=== PATIENT | female | born 2000 | race Caucasian/White ===

== ENCOUNTER 2020-05-25 08:33 | Day surgery (SDC) | payer OTHER ==
[2020-05-16 16:16] VITALS: BMI 21.1
[2020-05-25] MEDS ORDERED: PROPOFOL 20 ML ONE ×3 (09:10)
[2020-05-25 10:41] VITALS: TEMP 98.1
[2020-05-25] MEDS ORDERED: IBUPROFEN 600 MG TABLET (FP) PO ONE (10:48)
[2020-05-25] MEDS ORDERED: DICYCLOMINE HCL 20 MG/2 ML AMPUL IM ONE (10:55)
[2020-05-25 11:06] VITALS: BP 114/66; PULSE 76
[2020-05-25] MEDS ORDERED: DICYCLOMINE HCL 10 MG CAPSULE PO ONE (11:45)
== END 2020-05-25 11:10 | disposition home or self-care (01) ==
LOC: FASU-ENDO 08:33
PROVIDERS: ATTEND Internal Medicine Gastroenterology
PROC: 0DJD8ZZ Inspection of Lower Intestinal Tract, Via Natural or Artificial Opening Endoscopic (ICD-10-PCS; principal; 2020-05-25 09:46)
DX: R10.9 Unspecified abdominal pain (principal); K64.8 Other hemorrhoids; K63.89 Other specified diseases of intestine; K56.609 Unspecified intestinal obstruction, unspecified as to partial versus complete obstruction
CPT/HCPCS: 84703

== ENCOUNTER 2022-12-23 10:08 | Day surgery (SDC) | payer OTHER ==
[2022-12-22 11:59] VITALS: BMI 21.9
[2022-12-23] MEDS ORDERED: PROPOFOL 20 ML ONE (11:35)
[2022-12-23 12:22] VITALS: BP 104/64; PULSE 64; RESP 19; TEMP 97.8
== END 2022-12-23 12:00 | disposition home or self-care (01) ==
LOC: FASU-ENDO 10:08
PROVIDERS: ATTEND Internal Medicine Gastroenterology
PROC: 0DB68ZX Excision of Stomach, Via Natural or Artificial Opening Endoscopic, Diagnostic (ICD-10-PCS; 2022-12-23)
PROC: 0DB48ZX Excision of Esophagogastric Junction, Via Natural or Artificial Opening Endoscopic, Diagnostic (ICD-10-PCS; 2022-12-23)
PROC: 0DB98ZX Excision of Duodenum, Via Natural or Artificial Opening Endoscopic, Diagnostic (ICD-10-PCS; principal; 2022-12-23 11:47)
DX: K29.50 Unspecified chronic gastritis without bleeding (principal); K21.00 Gastro-esophageal reflux disease with esophagitis, without bleeding; R10.13 Epigastric pain
CPT/HCPCS: 81025; 88305-TC; 88342-TC